=== PATIENT | female | born 1975 | race Caucasian/White ===

== ENCOUNTER 2019-03-01 19:25 | Emergency (ER) | payer MEDICAID ==
[2019-03-01 19:44] VITALS: BP 148/88
[2019-03-01] MEDS ORDERED: Dicyclomine 10 MG Cap PO ONE (19:57)
[2019-03-01] MEDS ORDERED: Ondansetron 4 MG Tab.DIS PO ONE (20:06)
--- NOTE | 2019-03-01 20:10 | EDM.PDOC ---
ED HPI GENERAL MEDICAL PROBLEM - General Chief Complaint: Abdominal Pain Stated Complaint: RIGHT FRONT/SIDE/BACK PAIN Time Seen by Provider: 03/01/19 19:40 Source of Information: Reports: Patient History Limitations: Reports: No Limitations - History of Present Illness INITIAL COMMENTS - FREE TEXT/NARRATIVE: 43 yo F h/o partial hysterectomy (still has ovaries), left lobectomy of liver, cholecystectomy and appendectomy comes in for RLQ abdominal pain that radiates into the right back x 3 days. She states it's "getting worse" and the last time she had pain like this was when she had an ovarian cyst. She describes the pain as sharp, 8-9/10, worse with palpation, pressure, sitting, urinating, and speed bumps. She also c/o of nausea and constipation, with her last normal BM being 3 days ago. She denies any F/C, vomiting, diarrhea, vaginal discharge or odors, pain with sex, dysuria, hematuria or other GI/ complaints. She took 15mg Mobic and 650mg Tylenol x2 this AM, Zofran 3 hours ago, and 2 more Tylenol about an hour ago with some relief. No other complaints at this time. Her PCP is Dr. Gaxiola in [place]. She is in town visiting her son for Mother 's Day. Treatments IN MOLD COATER: Reports: Acetaminophen, Other (see below) Other Treatments IN MOLD COATER: mobic Right Lower Abdominal Pain Score (Numeric/FACES): 9 - Related Data Allergies Allergy/AdvReac Type Severity Reaction Status Date / Time amitriptyline Allergy Other Verified 03/01/19 19:45 aspirin Allergy Other Verified 03/01/19 19:45 bupropion [From Wellbutrin] Allergy Anxiety Verified 03/01/19 19:45 gabapentin Allergy Other Verified 03/01/19 19:45 pregabalin [From Lyrica] Allergy Other Verified 03/01/19 19:45 canagliflozin [From Invokana] AdvReac Other Verified 03/01/19 19:45 Home Meds: Home Meds ALPRAZolam [Xanax] 2 mg PO DAILY PRN 08/11/14 [History] Carisoprodol [Soma] 350 mg PO DAILY PRN 03/01/19 [History] DULoxetine [Cymbalta] 60 mg PO BID 03/01/19 [History] Meloxicam [Mobic] 7.5 mg PO DAILY 03/01/19 [History] Omeprazole 40 mg PO DAILY 03/01/19 [History] Ondansetron [Zofran] 4 mg SL Q6HR PRN 03/01/19 [History] SUMAtriptan [Imitrex] 0 mg PO ASDIRECTED PRN 03/01/19 [History] lamoTRIgine [Lamictal] 150 mg PO DAILY 03/01/19 [History] traZODone HCl [Trazodone HCl] 150 - 300 mg PO BEDTIME 03/01/19 [History] Past Medical History Gastrointestinal History: Reports: Chronic Constipation 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 (See Below) Other VEHICLE DISMANTLER History: hysterectomy Musculoskeletal History: Reports: Fracture Other Musculoskeletal History: ribs Neurological History: Reports: Headaches, Chronic Psychiatric History: Reports: Anxiety, Depression, Panic Attack, Other (See Below) Other Psychiatric History: border line personality disorder Endocrine/Metabolic History: Reports: Diabetes, Type II Hematologic History: Reports: Blood Transfusion(s) - Past Surgical History GI Surgical History: Reports: Appendectomy, Cholecystectomy Female Surgical History: Reports: Hysterectomy, Other (See Below) Other Female Surgeries/Procedures: ovarian cysts Neurological Surgical History: Reports: Other (See Below) Musculoskeletal Surgical History: Reports: Other (See Below) Social & Family History - Family History Family Medical History: Noncontributory - Tobacco Use Smoking Status *Q: Current Every Day Smoker Years of Tobacco use: 28 Packs/Tins Daily: 1 - Caffeine Use Caffeine Use: Reports: Coffee, Soda - Recreational Drug Use Recreational Drug Use: Yes Drug Use in Last 12 Months: Yes Recreational Drug Type: Reports: Marijuana/Hashish Recreational Drug Use Frequency: Socially ED ROS GENERAL - Review of Systems Review Of Systems: See Below Constitutional: Reports: No Symptoms. Denies: Fever, Chills HEENT: Reports: No Symptoms Respiratory: Reports: No Symptoms Cardiovascular: Reports: No Symptoms Endocrine: Reports: No Symptoms GI/Abdominal: Reports: Abdominal Pain (RLQ), Constipation (last BM 3 days ago), Nausea. Denies: Bloody Stool, Diarrhea, Vomiting : Reports: No Symptoms Musculoskeletal: Reports: Back Pain (radiating from RLQ) Skin: Reports: No Symptoms Neurological: Reports: No Symptoms Psychiatric: Reports: No Symptoms ED EXAM, GI/ABD - Physical Exam Exam: See Below Exam Limited By: No Limitations General Appearance: Alert, WD/WN, Mild Distress Eyes: Bilateral: Normal Appearance, EOMI Ears: Normal External Exam, Hearing Grossly Normal Throat/Mouth: Normal Inspection, Normal Lips, Normal Teeth, Normal Gums, Normal Oropharynx, Normal Voice, No Airway Compromise Respiratory/Chest: No Respiratory Distress, Lungs Clear, Normal Breath Sounds, No Accessory Muscle Use, Chest Non-Tender Cardiovascular: Normal Peripheral Pulses, Regular Rate, Rhythm, No Edema, No Gallop, No JVD, No Murmur, No Rub GI/Abdominal Exam: Normal Bowel Sounds, Soft, No Organomegaly, No Distention, No Abnormal Bruit, No Mass, Pelvis Stable, Tender (RLQ). No: Distended, Guarding, Rigid, Rebound Back Exam: Normal Inspection, Full Range of Motion. No: CVA Tenderness (L), CVA Tenderness (R) Neurological: Alert, Oriented, CN II-XII Intact, Normal Cognition, Normal Gait, Normal Reflexes, No Motor/Sensory Deficits Psychiatric: Normal Affect, Normal Mood Skin Exam: Warm, Dry, Intact, Normal Color, No Rash Course - Vital Signs Last Recorded V/S: Last Vital Signs Temp 98.2 F 03/01/19 19:40 Pulse 102 H 03/01/19 19:40 Resp 16 03/01/19 19:40 BP 148/88 H 03/01/19 19:40 Pulse Ox 96 03/01/19 19:40 - Orders/Labs/Meds Orders: Active Orders 24 hr Category Date Time Status KUB [Abdomen 1V Flat] [CR] Stat Exams 03/01/19 20:03 Taken Labs: Laboratory Tests 03/01/19 03/01/19 03/01/19 Range/Units 20:43 20:43 20:45 WBC 10.93 H (3.98-10.04) K/mm3 RBC 4.42 (3.98-5.22) M/mm3 Hgb 11.6 D (11.2-15.7) gm/L Hct 35.6 (34.1-44.9) % MCV 80.5 (79.4-94.8) fl MCH 26.2 (25.6-32.2) pg MCHC 32.6 (32.2-35.5) g/dl RDW Std Deviation 48.8 H (36.4-46.3) fL Plt Count 168 L (182-369) K/mm3 Neut % (Auto) 62.8 (34.0-71.1) % Lymph % (Auto) 27.2 (19.3-51.7) % [place] % (Auto) 7.2 (4.7-12.5) % Eos % (Auto) 2.5 (0.7-5.8) Baso % (Auto) 0.3 (0.1-1.2) % Neut # (Auto) 6.87 H (1.56-6.13) K/mm3 Lymph # (Auto) 2.97 (1.18-3.74) K/mm3 [place] # (Auto) 0.79 H (0.24-0.36) K/mm3 Eos # (Auto) 0.27 (0.04-0.36) K/mm3 Baso # (Auto) 0.03 (0.01-0.08) K/mm3 Manual Slide Review Abnormal smear Sodium 138 (136-145) mEq/L Potassium 3.5 (3.5-5.1) mEq/L Chloride 104 (98-107) mEq/L Carbon Dioxide 26 (21-32) mEq/L Anion Gap 11.5 (5-15) BUN 15 (7-18) mg/dL Creatinine 0.8 (0.55-1.02) mg/dL Est Cr Clr Drug Dosing 3.40 mL/min Estimated GFR (MDRD) > 60 (>60) mL/min BUN/Creatinine Ratio 18.8 H (14-18) Glucose 164 H (74-106) mg/dL Calcium 9.0 (8.5-10.1) mg/dL Total Bilirubin 0.1 L (0.2-1.0) mg/dL AST 12 L (15-37) U/L ALT 19 (14-59) U/L Alkaline Phosphatase 99 (46-116) U/L C-Reactive Protein 1.1 H* (<1.0) mg/dL Total Protein 7.0 (6.4-8.2) g/dl Albumin 3.2 L (3.4-5.0) g/dl Globulin 3.8 gm/dL Albumin/Globulin Ratio 0.8 L (1-2) Urine Color Yellow (Yellow) Urine Appearance Clear (Clear) Urine pH 6.5 (5.0-8.0) Ur Specific [place] 1.020 (1.005-1.030) Urine Protein Trace H (Negative) Urine Glucose (UA) Negative (Negative) Urine Ketones Negative (Negative) Urine Occult Blood Negative (Negative) Urine Nitrite Negative (Negative) Urine Bilirubin Negative (Negative) Urine Urobilinogen 0.2 (0.2-1.0) Ur Leukocyte Esterase Negative (Negative) Urine RBC 0-5 (0-5) /hpf Urine WBC Not seen (0-5) /hpf Ur Squamous Epith Cells 10-20 H (0-5) /hpf Urine Bacteria Rare (FEW) /hpf Urine Mucus Not seen (FEW) /hpf Meds: Medications Discontinued Medications Generic Name Dose Route Start Last Admin Trade Name Freq PRN Reason Stop Dose Admin Dicyclomine HCl 10 mg 03/01/19 19:57 03/01/19 20:43 Bentyl PO 03/01/19 19:58 10 mg ONETIME ONE Administration Magnesium Citrate 296 ml 03/01/19 21:37 Citrate Of Magnesia PO 03/01/19 21:38 ONETIME ONE Ondansetron HCl 4 mg 03/01/19 20:06 03/01/19 20:10 Zofran Odt PO 03/01/19 20:07 4 mg ONETIME ONE Administration - Re-Assessments/Exams Free Text/Narrative Re-Assessment/Exam: 03/01/19 20:09 Ordered CBC, CMP, CRP, UA, KUB Would like to order transvaginal U/S to r/o ovarian cyst, 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 Bentyl and Zofran 03/01/19 21:15 CBC, CMP, CRP WNL UA negative for blood, UTI KUB seems to only show constipation; awaiting report from [facility] 03/01/19 21:34 [facility] shows no acute findings. I discussed results with her and let her know that nothing acute was found on labs or Xray and this is likely constipation. Offered to schedule a transvaginal U/S for her on Sunday or Sunday, but she states she lives in [place] so will just follow up there. At this time she is stable to go home. Departure - Departure Time of Disposition: 21:36 Disposition: Home, Self-Care 01 Condition: Good Clinical Impression: Constipation, Abdominal pain - Discharge Information *PRESCRIPTION DRUG MONITORING PROGRAM REVIEWED*: Yes *COPY OF PRESCRIPTION DRUG MONITORING REPORT IN PATIENT GIO: Yes Instructions: Constipation, Adult, [id number] Referrals: Guy Reynoso, DO [Primary Care Provider] - Forms: ED Department Discharge Additional Instructions: You were seen in the ED today for lower quadrant abdominal pain. You had labs, abdominal Xray, and urine test done here. The only thing found was constipation on Xray. You will be given Magnesium Citrate 1/2 bottle now, recommend taking the other 1/2 in 8 hours. Also recommend drinking plenty of water and taking Miralax daily. You can take over the counter Tylenol or Advil for pain. Transvaginal U/S is not available at this time, so if you still want to get checked for ovarian cyst we offered an appointment on Sunday or Sunday. You would like to follow up in [place] instead. Recommend follow up with your primary care provider. Please return to ED if new or worsening symptoms. - My Orders Last 24 Hours: My Active Orders 03/01/19 20:03 KUB [Abdomen 1V Flat] [CR] Stat - Assessment/Plan Last 24 Hours: My Active Orders 03/01/19 20:03 KUB [Abdomen 1V Flat] [CR] Stat
[2019-03-01] MEDS ORDERED: Magnesium Citrate Solution 296 ML Bottle PO ONE (21:37)
--- NOTE | 2019-03-03 06:35 | CR ---
Abdomen: Supine view of the abdomen was obtained. Comparison: No prior abdominal x-ray, prior CT abdomen and pelvis exam of 04/28/14 is available. Findings: Scattered degenerative change within the lower lumbar spine. Numerous surgical clips are seen within the upper abdomen and midabdomen. Bowel gas pattern is normal. No discrete soft tissue finding is seen. No abnormal calcifications are identified. Impression: 1. Incidental surgical clips. Nothing acute is appreciated on supine abdominal x-ray. Diagnostic code #2
== END 2019-03-01 21:45 | disposition home or self-care (01) ==
LOC: JD.ED 19:25
DX: K59.00 Constipation, unspecified (principal); F41.9 Anxiety disorder, unspecified; F32.9 Major depressive disorder, single episode, unspecified; E11.9 Type 2 diabetes mellitus without complications; F17.210 Nicotine dependence, cigarettes, uncomplicated; Z90.49 Acquired absence of other specified parts of digestive tract; Z90.710 Acquired absence of both cervix and uterus; Z79.899 Other long term (current) drug therapy; Z88.6 Allergy status to analgesic agent; Z88.8 Allergy status to other drugs, medicaments and biological substances
CPT/HCPCS: 36415; 74018; 80053; 81001; 85025; 86140; 99284; A9270

== ENCOUNTER 2021-12-14 15:10 | Emergency (ER) | payer MEDICARE, MEDICAID ==
[2021-12-14 15:32] VITALS: BP 175/97; PULSE 98
[2021-12-14] MEDS ORDERED: Cyclobenzaprine 10 MG Tab PO ONE (15:42)
[2021-12-14] MEDS ORDERED: Ketorolac 60 MG/2 ML SDV IM ONE (15:42)
[2021-12-14] MEDS ORDERED: HYDROmorphone 1 MG/ML Syringe IM ONE (15:42)
[2021-12-14] MEDS ORDERED: Ondansetron 4 MG Tab.DIS PO ONE (16:15)
== END 2021-12-14 17:15 | disposition home or self-care (01) ==
LOC: JD.ED 15:10
DX: G89.29 Other chronic pain (principal); M54.50 Low back pain, unspecified; E11.9 Type 2 diabetes mellitus without complications; Z72.0 Tobacco use; Z79.82 Long term (current) use of aspirin; Z88.5 Allergy status to narcotic agent; Z79.899 Other long term (current) drug therapy
CPT/HCPCS: 96372; 99283; A9270; J1170; J1885

== ENCOUNTER 2023-05-23 11:54 | Emergency (ER) | payer MEDICARE, OTHER, MEDICAID ==
[2023-05-23 12:22] VITALS: PULSE 89
[2023-05-23] MEDS ORDERED: Sodium Chloride 0.9% 1,000 ML IV ONE (12:25)
[2023-05-23] MEDS ORDERED: Loperamide 2 MG Cap PO ONE (12:25)
[2023-05-23] MEDS ORDERED: Sodium Chloride 0.9% 10 ML Syringe FLUSH PRN (12:25)
[2023-05-23] MEDS ORDERED: Ondansetron 4 MG/2 ML SDV IVPUSH ONE (12:25)
[2023-05-23] MEDS ORDERED: Dicyclomine 10 MG Cap PO ONE (12:31)
[2023-05-23 12:49] LABS: BASOPHILS ABSOLUTE AUTO 0.02 K/mm3 (0.01-0.08); BASOPHILS PERCENT AUTO 0.3 % (0.1-1.2); EOSINOPHILS ABSOLUTE AUTO 0.17 K/mm3 (0.04-0.36); EOSINOPHILS PERCENT AUTO 2.2 (0.7-5.8); HEMATOCRIT 37.2 % (34.1-44.9); HEMOGLOBIN 11.6 gm/dl (11.2-15.7); IMMATURE GRAN ABSOLUTE AUTO 0.01 K/mm3 (0.00-0.10); IMMATURE GRAN PERCENT AUTO 0.1 % (<=1.0); LYMPHOCYTES ABSOLUTE AUTO 1.89 K/mm3 (1.18-3.74); LYMPHOCYTES PERCENT AUTO 24.2 % (19.3-51.7); MEAN CORPUSCULAR HEMOGLOBIN 25.5 pg (25.6-32.2); MEAN CORPUSCULAR HGB CONC 31.2 g/dl (32.2-35.5); MEAN CORPUSCULAR VOLUME 81.8 fl (79.4-94.8); MEAN PLATELET VOLUME 13.2 fl (9.4-12.3); MONOCYTES ABSOLUTE AUTO 0.67 K/mm3 (0.24-0.36); MONOCYTES PERCENT AUTO 8.6 % (4.7-12.5); NEUTROPHILS ABSOLUTE AUTO 5.05 K/mm3 (1.56-6.13); NEUTROPHILS PERCENT AUTO 64.6 % (34.0-71.1); PLATELET COUNT,PLT 192 K/mm3 (182-369); RED BLOOD CELL COUNT 4.55 M/mm3 (3.98-5.22); WHITE BLOOD CELL COUNT,WBC 7.81 K/mm3 (3.98-10.04)
[2023-05-23 13:10] LABS: A/G RATIO 0.9 (1-2); ALANINE AMINOTRANSFERASE,ALT 26 U/L (14-59); ALBUMIN 3.3 g/dl (3.4-5.0); ALKALINE PHOSPHATASE 77 U/L (46-116); ANION GAP 13.6 (5-15); ASPARTATE AMNIOTRANSFERASE,AST 15 U/L (15-37); BILIRUBIN TOTAL 0.2 mg/dL (0.2-1.0); BLOOD UREA NITROGEN,BUN 7 mg/dL (7-18); CALCIUM 9.4 mg/dL (8.5-10.1); CARBON DIOXIDE,CO2 26 mEq/L (21-32); CHLORIDE,CL 104 mEq/L (98-107); CREATININE 0.7 mg/dL (0.55-1.02); EST CRCL DRUG DOSING (CG) 83.07 mL/min; ESTIMATED GFR 108 mL/min (>60); GLUCOSE RANDOM 163 mg/dL (70-99); LIPASE 54 U/L (73-393); MAGNESIUM 1.8 mg/dL (1.8-2.4); POTASSIUM,K 3.6 mEq/L (3.5-5.1); PROTEIN TOTAL,TP 7.1 g/dl (6.4-8.2); SODIUM,NA 140 mEq/L (136-145)
[2023-05-23 13:16] LABS: C-REACTIVE PROTEIN < 0.2 mg/dL (<1.0)
[2023-05-23 13:39] LABS: APPEARANCE,URINE CLEAR (Clear); BILIRUBIN,URINE NEGATIVE (Negative); COLOR,URINE YELLOW (Yellow); GLUCOSE,URINE NEGATIVE (Negative); KETONES,URINE NEGATIVE (Negative); LEUKOCYTE ESTERASE,URINE NEGATIVE (Negative); NITRITE,URINE NEGATIVE (Negative); OCCULT BLOOD,URINE NEGATIVE (Negative); PROTEIN,URINE TRACE (Negative); UROBILINOGEN,URINE 0.2 (0.2-1.0)
[2023-05-23 13:52] LABS: BACTERIA,URINE MODERATE /hpf (FEW); CALCIUM OXALATE CRYSTALS,URINE FEW; RBC,URINE 0-5 /hpf (0-5); SQUAMOUS EPITHELIAL CELLS,UR 0-5 /hpf (0-5); WBC,URINE 0-5 /hpf (0-5)
[2023-05-23 13:53] LABS: MUCUS,URINE MANY /hpf (FEW)
[2023-05-23 18:38] VITALS: BP 135/82
== END 2023-05-23 15:04 | disposition home or self-care (01) ==
LOC: JD.ED 11:54
DX: R19.7 Diarrhea, unspecified (principal); R10.84 Generalized abdominal pain; E11.9 Type 2 diabetes mellitus without complications; Z88.8 Allergy status to other drugs, medicaments and biological substances; Z79.899 Other long term (current) drug therapy; Z90.49 Acquired absence of other specified parts of digestive tract; Z90.710 Acquired absence of both cervix and uterus; Z88.6 Allergy status to analgesic agent
CPT/HCPCS: 36415; 80053; 81001; 83690; 83735; 85025; 86140; 96361; 96374; 99284; A9270; J2405; J3490; J7030

== ENCOUNTER 2023-09-20 07:43 | Day surgery (SDC) | payer MEDICARE, OTHER ==
[~2023-09-20 07:43] MED LIST: Lactated Ringers 1,000 ML IV SCH; Sodium Chloride 0.9% 10 ML Syringe FLUSH PRN; Sodium Chloride 0.9% 10 ML Syringe FLUSH SCH
[2023-09-20] MEDS ORDERED: fentaNYL 100 MCG/2 ML SDV ONE (08:33)
[2023-09-20] MEDS ORDERED: Propofol 200 MG/20 ML SDV ONE (08:33)
[2023-09-20] MEDS ORDERED: Lidocaine 1% 4 ML ONE (08:34)
[2023-09-20] MEDS ORDERED: Lidocaine 1% PF 2 ML SDV ONE (08:34)
[2023-09-20 10:57] VITALS: BP 112/74; PULSE 72
== END 2023-09-20 09:43 | disposition home or self-care (01) ==
LOC: JD.SDS 07:43
PROVIDERS: ATTEND Specialist
DX: K29.50 Unspecified chronic gastritis without bleeding (principal); K21.00 Gastro-esophageal reflux disease with esophagitis, without bleeding; K44.9 Diaphragmatic hernia without obstruction or gangrene; I10 Essential (primary) hypertension; E78.00 Pure hypercholesterolemia, unspecified; E11.9 Type 2 diabetes mellitus without complications; F41.9 Anxiety disorder, unspecified; F32.A Depression, unspecified; E03.9 Hypothyroidism, unspecified; E66.9 Obesity, unspecified; Z68.30 Body mass index [BMI] 30.0-30.9, adult; Z79.899 Other long term (current) drug therapy; Z98.890 Other specified postprocedural states; F17.210 Nicotine dependence, cigarettes, uncomplicated; Z88.5 Allergy status to narcotic agent; Z88.1 Allergy status to other antibiotic agents
CPT/HCPCS: 43239; 88305; J2704; J3010; J7120; 00731; J3490

== ENCOUNTER 2023-10-03 10:41 | Emergency (ER) | payer MEDICARE, OTHER ==
[2023-10-03] MEDS ORDERED: Ondansetron 4 MG/2 ML SDV IVPUSH ONE (11:31)
[2023-10-03] MEDS ORDERED: Famotidine 20 MG/2 ML SDV IVPUSH ONE (11:31)
[2023-10-03] MEDS ORDERED: Sodium Chloride 0.9% 1,000 ML IV STA (11:31)
[2023-10-03] MEDS ORDERED: Alum Hydrox/Mag Hydrox/Simeth 30 ML, Lidocaine 2% 15 ML PO ONE ×2 (11:31)
[2023-10-03] MEDS ORDERED: HYDROmorphone 0.5 MG/0.5 ML Syringe IVPUSH ONE ×3 (11:31→14:47)
[2023-10-03] MEDS ORDERED: Sodium Chloride 0.9% 10 ML Syringe FLUSH PRN (11:31)
[2023-10-03 12:42] LABS: BASOPHILS PERCENT AUTO 0.4 % (0.0-1.0); EOSINOPHILS ABSOLUTE AUTO 0.2 K/mm3 (0.0-0.4); EOSINOPHILS PERCENT AUTO 2.3 % (0.0-6.0); HEMATOCRIT 39.8 % (37.0-47.0); HEMOGLOBIN 12.3 gm/dl (12.0-16.0); IMMATURE GRAN ABSOLUTE AUTO 0.02 K/mm3 (0.00-0.05); IMMATURE GRAN PERCENT AUTO 0.3 % (0.0-0.4); LYMPHOCYTES ABSOLUTE AUTO 2.2 K/mm3 (1.0-4.8); LYMPHOCYTES PERCENT AUTO 27.7 % (24.0-44.0); MEAN CORPUSCULAR HEMOGLOBIN 23.9 pg (28.0-32.0); MEAN CORPUSCULAR HGB CONC 30.9 g/dl (32.0-36.0); MEAN CORPUSCULAR VOLUME 77.4 fl (83.0-99.0); MONOCYTES ABSOLUTE AUTO 0.5 K/mm3 (0.0-0.8); MONOCYTES PERCENT AUTO 5.8 % (0.0-8.0); NEUTROPHILS PERCENT AUTO 63.5 % (41.0-71.0); PLATELET COUNT,PLT 186 K/mm3 (150-400); RED BLOOD CELL COUNT 5.14 M/mm3 (4.10-5.30); WHITE BLOOD CELL COUNT,WBC 7.91 K/mm3 (3.9-11.3)
[2023-10-03 13:03] LABS: ALANINE AMINOTRANSFERASE,ALT 17 U/L (14-59); ALBUMIN 3.6 g/dl (3.4-5.0); ALKALINE PHOSPHATASE 84 U/L (46-116); ASPARTATE AMNIOTRANSFERASE,AST 14 U/L (15-37); BILIRUBIN TOTAL 0.3 mg/dL (0.2-1.0); BLOOD UREA NITROGEN,BUN 9 mg/dL (7-18); C-REACTIVE PROTEIN <0.2 mg/dL (<1.0); CALCIUM 9.2 mg/dL (8.5-10.1); CARBON DIOXIDE,CO2 26 mEq/L (21-32); CHLORIDE,CL 106 mEq/L (98-107); CREATININE 0.9 mg/dL (0.55-1.02); EST CRCL DRUG DOSING (CG) 63.92 mL/min; ESTIMATED GFR 79 mL/min (>60); GLUCOSE RANDOM 111 mg/dL (70-99); LIPASE 21 U/L (16-77); PROTEIN TOTAL,TP 7.4 g/dl (6.4-8.2); SODIUM,NA 141 mEq/L (136-145)
[2023-10-03 13:14] LABS: SLIDE REVIEW ABNORMAL SMEAR
[2023-10-03] MEDS ORDERED: Sucralfate Suspension 1 GM/10 ML Cup PO ONE (13:56)
[2023-10-03 14:29] LABS: APPEARANCE,URINE CLEAR (Clear); BILIRUBIN,URINE NEGATIVE (Negative); COLOR,URINE YELLOW (Yellow); GLUCOSE,URINE NEGATIVE (Negative); KETONES,URINE NEGATIVE (Negative); LEUKOCYTE ESTERASE,URINE NEGATIVE (Negative); NITRITE,URINE NEGATIVE (Negative); OCCULT BLOOD,URINE NEGATIVE (Negative); PROTEIN,URINE NEGATIVE (Negative); UROBILINOGEN,URINE 0.2 (0.2-1.0)
[2023-10-03] MEDS ORDERED: Dicyclomine 10 MG Cap PO ONE (14:47)
[2023-10-03] MEDS ORDERED: Magnesium Citrate Solution 296 ML Bottle PO ONE (14:47)
[2023-10-03 15:02] LABS: BACTERIA,URINE FEW /hpf (FEW); EPITHELIAL CELLS,URINE 0-5 /hpf (0-5); MUCUS,URINE FEW /hpf (FEW); RBC,URINE 0-5 /hpf (0-5); WBC,URINE 0-5 /hpf (0-5)
[2023-10-03 18:14] VITALS: BP 164/119; PULSE 76
== END 2023-10-03 15:30 | disposition home or self-care (01) ==
LOC: JD.ED 10:41
DX: K59.00 Constipation, unspecified (principal); F17.210 Nicotine dependence, cigarettes, uncomplicated; K21.9 Gastro-esophageal reflux disease without esophagitis; I10 Essential (primary) hypertension; E66.9 Obesity, unspecified; E11.9 Type 2 diabetes mellitus without complications; Z79.899 Other long term (current) drug therapy; Z88.6 Allergy status to analgesic agent; Z88.8 Allergy status to other drugs, medicaments and biological substances
CPT/HCPCS: 36415; 74019; 80053; 81001; 83690; 85025; 86140; 96361; 96374; 96375; 96376; 99284; A9270; J1170; J2405; J3490; J7030